=== PATIENT | male | born 1990 | race Caucasian/White ===

== ENCOUNTER 2022-11-29 22:25 | Emergency (ER) | payer BC ==
[~2022-11-29] VITALS: Ht 162.6 cm; Wt 102.1 kg
[2022-11-29 22:50] VITALS: BP_SYST 131
[2022-11-30 00:08] LABS: BASOPHILS % (AUTO) 0.5 % (0.0-2.0); EOSINOPHILS % (AUTO) 0.7 % (0.0-4.0); HEMATOCRIT 50.9 % (36-54); HEMOGLOBIN 18.2 g/dL (14.0-18.0); LYMPHOCYTES # (AUTO) 1.3 K/uL (1.0-5.5); LYMPHOCYTES % (AUTO) 22.6 % (20.5-51.5); MEAN CORPUSCULAR HEMOGLOBIN 30 pg (27-31); MEAN CORPUSCULAR HGB CONC 36 % (32-36); MEAN CORPUSCULAR VOLUME 84 fL (79.0-98.0); MONOCYTES # (AUTO) 0.7 K/uL (0.0-1.0); MONOCYTES % (AUTO) 12.9 % (1.7-9.3); NEUTROPHILS # (AUTO) 3.7 K/uL (1.8-7.7); NEUTROPHILS % (AUTO) 63.3 % (40.0-70.0); PLATELET COUNT (AUTO) 178 K/uL (130-430); RED BLOOD CELL COUNT(AUTO) 6.08 MIL/uL (4.2-6.2); RED CELL DISTRIBUTION WIDTH 13.6 % (9.0-15.0); WHITE BLOOD COUNT (AUTO) 5.8 K/uL (4.8-10.8)
[2022-11-30 00:18] LABS: ALBUMIN 3.7 g/dL (3.4-4.8); CALCIUM 8.5 mg/dL (8.4-11.0); CREATININE 1.04 mg/dL (0.55-1.30); TOTAL BILIRUBIN 0.9 mg/dL (0.0-1.0)
[2022-11-30 00:47] LABS: BILIRUBIN,URINE NEGATIVE (NEGATIVE); BLOOD, URINE NEGATIVE (NEGATIVE); CLARITY/URINE SL CLOUDY (CLEAR); COLOR,URINE ORANGE (YELLOW); GLUCOSE,URINE NEGATIVE (NEGATIVE); KETONES,URINE TRACE (NEGATIVE); LEUKOCYTE ESTERASE ,URINE NEGATIVE (NEGATIVE); NITRITE, URINE NEGATIVE (NEGATIVE); PH,URINE 5.5 (5.0-8.0); PROTEIN URINE TRACE (NEGATIVE); UROBILINOGEN,URINE 0.2 (0.2-1.0)
[2022-11-30] MEDS ORDERED: DICY10CA13 PO (02:21)
[2022-11-30] MEDS ORDERED: NAPR-1172 PO (02:21)
[2022-11-30] MEDS ORDERED: KETOROLAC TROMETHAMINE 30 MG VIAL IM ONE (02:30)
[2022-11-30 02:31] LABS: URINE SULFO SALICYLIC ACID NEGATIVE (NEGATIVE)
[2022-11-30 02:56] VITALS: BP_SYST 121
== END 2022-11-30 02:56 | disposition home or self-care (01) ==
LOC: SED 22:25
DX: R10.32 Left lower quadrant pain (principal); R74.01 Elevation of levels of liver transaminase levels; R16.1 Splenomegaly, not elsewhere classified; R80.9 Proteinuria, unspecified; Z79.899 Other long term (current) drug therapy
CPT/HCPCS: 99285; 80053; 83690; 85025; 87086; 36415; 81003; 74176; 76376; 96372; J1885